=== PATIENT | male | born 1965 | race African-American/Black ===

== ENCOUNTER 2021-10-17 14:36 | Emergency (ER) | payer BC ==
[~2021-10-17] VITALS: Ht 172.7 cm; Wt 140.5 kg
[2021-10-17 15:08] LABS: BASO # 0.1 x10^3/uL (0.0-0.2); BASO % 1 % (0-3); EOS # 0.4 x10^3/uL (0.0-0.7); EOS % 4 % (0-3); HEMATOCRIT 45.1 % (39.0-53.0); LYMPH # 2.5 x10^3/uL (1.0-4.8); LYMPH % 27 % (24-48); MEAN CORPUSCULAR HEMOGLOBIN 29 pg (25-35); MEAN CORPUSCULAR HGB CONC 33 g/dL (31-37); MEAN CORPUSCULAR VOLUME 87 fL (79-100); MONO # 0.9 x10^3/uL (0.0-1.1); MONO % 10 % (0-9); NEUT # 5.5 x10^3uL (1.8-7.7); NEUT % 58 % (31-73); PLATELET COUNT 248 x10^3/uL (140-400); RED BLOOD COUNT 5.19 x10^6/uL (4.30-5.70); RED CELL DISTRIBUTION WIDTH 15.1 % (11.5-14.5); WHITE BLOOD COUNT 9.5 x10^3/uL (4.0-11.0)
[2021-10-17 15:17] LABS: CALCIUM 8.6 mg/dL (8.5-10.1); CREATININE 0.8 mg/dL (0.7-1.3); GFR 120.6; POTASSIUM 4.1 mmol/L (3.5-5.1)
--- NOTE | 2021-10-17 15:17 | RAD ---
EXAM: XR CHEST 1V 10/17/2021 2:50 PM CLINICAL INDICATION: Fever COMPARISON: Rib series radiograph 07/06/2014 TECHNIQUE: AP upright view of the chest FINDINGS: The heart and mediastinum are normal. Lungs are well-expanded and clear. No consolidatio n, pleural effusion, or pneumothorax. Pulmonary vascularity is normal. No acute osseous abnormality. IMPRESSION: No acute cardiopulmonary abnormality. Electronically signed by: Carrie Dougherty MD (10/17/2021 3:15 PM) [id number]
[2021-10-17 15:22] LABS: ALBUMIN 3.3 g/dL (3.4-5.0); ALBUMIN/GLOBULIN RATIO 1.1 (1.0-1.7); TOTAL BILIRUBIN 0.2 mg/dL (0.2-1.0); TOTAL PROTEIN 6.4 g/dL (6.4-8.2)
--- NOTE | 2021-10-17 15:23 | PHYS DOC ---
Past History Past Medical History: No Pertinent History Past Surgical History: Other Additional Past Surgical Histo: LEFT KNEE Smoking: Cigarettes, Less than 1pk/day Additional Smoking Information: 1/2 to 1 pack/day Alcohol Use: Heavy Drug Use: None General Adult EDM: Chief Complaint: CHEST PAIN HPI: HPI: 56-year-old male presents with chest pain. Patient has had intermittent chest pain for several days. Is been more consistent last 2 days. He describes it as a fluttering sensation in the left side of his chest. The pain is 3 out of 10 and intermittent. Lasts 10 to 15 minutes at a time. Patient also states that he feels like he has had palpitations. These occur especially when he lays down at night. It feels like his heart is going fast for a while and these episodes also last for several minutes but less than an hour. Patient has no cardiac history. He does have hypertension which he takes amlodipine. No history of cardiac cath or stress test. He denies fever or chills. Review of Systems: Review of Systems: Constitutional: Denies fever or chills Eyes: Denies change in visual acuity HENT: Denies nasal congestion or sore throat Respiratory: Denies cough or shortness of breath Cardiovascular: Chest pain, palpitations. GI: Denies abdominal pain, nausea, vomiting, bloody stools or diarrhea : Denies dysuria Musculoskeletal: Denies back pain or joint pain Integument: Denies rash Neurologic: Denies headache, focal weakness or sensory changes Endocrine: Denies polyuria or polydipsia Lymphatic: Denies swollen glands Psychiatric: Denies depression or anxiety Allergies: Allergies: Allergies Coded Allergies Type Severity Reaction Last Updated Verified Penicillins Allergy Intermediate rash, GI upset 07/06/14 No ampicillin Allergy Intermediate rash, GI upset 07/06/14 No aspirin Allergy Intermediate rash, GI upset 07/06/14 No ibuprofen Allergy Intermediate rash, GI upset 07/06/14 No Physical Exam: PE: Constitutional: Well developed, well nourished, morbidly obese, no acute distress, non-toxic appearance. [] HENT: Normocephalic, atraumatic, bilateral external ears normal, oropharynx moist, no oral exudates, nose normal. [] Eyes: PERRLA, EOMI, conjunctiva normal, no discharge. [] Neck: Normal range of motion, no tenderness, supple, no stridor. [] Cardiovascular: Heart rate 104, regular rhythm, no murmur [] Lungs & Thorax: Bilateral breath sounds clear to auscultation [] Abdomen: Bowel sounds normal, soft, no tenderness, no masses, no pulsatile masses. [] Skin: Warm, dry, no erythema, no rash. [] Back: No tenderness, no CVA tenderness. [] Extremities: No tenderness, no cyanosis, no clubbing, ROM intact, no edema. [] Neurologic: Alert and oriented X 3, normal motor function, normal sensory function, no focal deficits noted. [] Psychologic: Affect normal, judgement normal, mood normal. [] Current Patient Data: Labs: Laboratory Tests Test 10/17/21 14:45 White Blood Count 9.5 x10^3/uL (4.0-11.0) Red Blood Count 5.19 x10^6/uL (4.30-5.70) Hemoglobin 15.0 g/dL (13.0-17.5) Hematocrit 45.1 % (39.0-53.0) Mean Corpuscular Volume 87 fL (79-100) Mean Corpuscular Hemoglobin 29 pg (25-35) Mean Corpuscular Hemoglobin Concent 33 g/dL (31-37) Red Cell Distribution Width 15.1 % (11.5-14.5) H Platelet Count 248 x10^3/uL (140-400) Neutrophils (%) (Auto) 58 % (31-73) Lymphocytes (%) (Auto) 27 % (24-48) Monocytes (%) (Auto) 10 % (0-9) H Eosinophils (%) (Auto) 4 % (0-3) H Basophils (%) (Auto) 1 % (0-3) Neutrophils # (Auto) 5.5 x10^3uL (1.8-7.7) Lymphocytes # (Auto) 2.5 x10^3/uL (1.0-4.8) Monocytes # (Auto) 0.9 x10^3/uL (0.0-1.1) Eosinophils # (Auto) 0.4 x10^3/uL (0.0-0.7) Basophils # (Auto) 0.1 x10^3/uL (0.0-0.2) Vital Signs: Vital Signs Date Time Temp Pulse Resp B/P (MAP) Pulse Ox O2 Delivery O2 Flow Rate FiO2 10/17/21 14:40 98.5 110 20 155/94 (114) 100 Room Air EKG: EKG: Sinus tachycardia, rate 104, normal axis, no ST elevation or depression. [] Radiology/Procedures: Radiology/Procedures: [] Impressions: EXAM: XR CHEST 1V 10/17/2021 2:50 PM CLINICAL INDICATION: Fever COMPARISON: Rib series radiograph 07/06/2014 TECHNIQUE: AP upright view of the chest FINDINGS: The heart and mediastinum are normal. Lungs are well-expanded and clear. No consolidation, pleural effusion, or pneumothorax. Pulmonary vascularity is normal. No acute osseous abnormality. IMPRESSION: No acute cardiopulmonary abnormality. Electronically signed by: Carrie Dougherty MD (10/17/2021 3:15 PM) [id number] DICTATED AND SIGNED BY: CARRIE DOUGHERTY MD DATE: 10/17/21 1513 CC: RASHMI THEODORE DO; PCP,NO ~MTH0 0 Heart Score: C/O Chest Pain: Yes HEART Score for Chest Pain: HEART Score for Chest Pain Response (Comments) Value History Slighlty/Non-Suspicious 0 ECG Normal 0 Age >45 - < 65 1 Risk Factors 1 or 2 Risk Factors 1 Troponin < Normal Limit 0 Total 2 Risk Factors: Risk Factors: DM, Current or recent (<one month) smoker, HTN, HLP, family history of CAD, obesity. Risk Scores: Score 0 - 3: 2.5% MACE over next 6 weeks - Discharge Home Score 4 - 6: 20.3% MACE over next 6 weeks - Admit for Clinical Observation Score 7 - 10: 72.7% MACE over next 6 weeks - Early Invasive Strategies Course & Med Decision Making: Course & Med Decision Making Pertinent Labs and Imaging studies reviewed. (See chart for details) The patient's chest x-ray is negative for acute findings. His EKG is negative for acute findings. His labs are unremarkable. His troponin is negative. I believe the patient's symptoms are either musculoskeletal or he may have intermittent palpitations. We have not recorded an abnormal rhythm in the emergency room. I advised that he follow-up with his primary physician and consider an event monitor. The patient may or may not need to consider a stress test though I have no evidence to support urgent necessity of this test at this time. Patient also talk to me about some hand tingling and numbness mostly at night when he lays on that hand. This is likely related to carpal tunnel. I have advised that he follow-up with his PCP about this issue as well. He is stable for discharge at this time. [] Mikaon Disclaimer: Dragkirt Disclaimer: This electronic medical record was generated, in whole or in part, using a voice recognition dictation system. Departure Departure: Impression: Primary Impression: Chest pain Qualified Codes: R07.9 - Chest pain, unspecified Disposition: HOME / SELF CARE / HOMELESS Condition: STABLE Referrals: PCP,LIZ (PCP) Patient Instructions: Chest Pain (Nonspecific), [id number] RASHMI THEODORE DO Oct 17, 2021 15:23
[2021-10-17 16:40] VITALS: BP 140/84
--- NOTE | 2021-10-18 00:19 | EKG ---
[address] [address] Test Date: 2021-10-17 Test Time: 14:50:24 Pat Name: MARIO LUCIANO Department: Room: Gender: M Fundraising Sale Representative: ROSAURA : 1965 Requested By: RASHMI THEODORE Order Number: [id number] Reading MD: Foreign Hernandes Measurements Intervals [place] Rate: 104 P: 67 [place]: 158 QRS: 20 QRSD: 64 T: 59 QT: 306 QTc: 408 Interpretive Statements SINUS TACHYCARDIA Electronically Signed On 10-20-2021 12:59:16 PROSTHETIC AIDE by Foreign Hernandes
== END 2021-10-17 16:40 | disposition home or self-care (01) ==
LOC: ER 14:36
DX: R07.89 Other chest pain (principal); R00.2 Palpitations; F17.210 Nicotine dependence, cigarettes, uncomplicated; F10.20 Alcohol dependence, uncomplicated; Z88.0 Allergy status to penicillin; Z88.1 Allergy status to other antibiotic agents; Z88.6 Allergy status to analgesic agent; Y90.9 Presence of alcohol in blood, level not specified
CPT/HCPCS: 36415; 71045; 80053; 84484; 85025; 93005; 99285